=== PATIENT | female | born 1995 | race Caucasian/White ===

== ENCOUNTER 2021-12-21 22:19 | Inpatient (IN) | payer BC, OTHER, SELFPAY ==
[~2021-12-21] VITALS: Ht 157.5 cm; Wt 56.7 kg
[2021-12-21 22:29] VITALS: BP 144/85
--- NOTE | 2021-12-21 23:15 | NUR ---
Dr. Maldonado at triage to exam patient.
--- NOTE | 2021-12-21 23:19 | NUR ---
Ambulatory to bed 4.
[2021-12-21] MEDS ORDERED: NACL 0.9% 1,000 ML IV ONE (23:30)
[2021-12-21 23:44] LABS: BASOPHILS # (AUTO) 0.1 K/uL (0.00-0.22); BASOPHILS % (AUTO) 0.4 % (0.0-2.0); EOSINOPHILS % (AUTO) 0.2 % (0.0-4.0); HEMATOCRIT 26.9 % (36-48); HEMOGLOBIN 8.7 g/dL (12.0-16.0); LYMPHOCYTES # (AUTO) 1.9 K/uL (2.5-16.5); LYMPHOCYTES % (AUTO) 12.6 % (20.5-51.1); MEAN CORPUSCULAR HEMOGLOBIN 27 pg (27-31); MEAN CORPUSCULAR HGB CONC 32 g/dL (33-37); MEAN CORPUSCULAR VOLUME 83.8 fL (80-94); MONOCYTES # (AUTO) 0.7 K/uL (0.8-1.0); MONOCYTES % (AUTO) 4.9 % (1.7-9.3); NEUTROPHILS # (AUTO) 12.3 K/uL (1.8-7.7); NEUTROPHILS % (AUTO) 81.9 % (42.2-75.2); PLATELET COUNT (AUTO) 129 K/uL (140-450); RED BLOOD CELL COUNT(AUTO) 3.21 MIL/uL (4.20-5.40); RED CELL DISTRIBUTION WIDTH 21.7 % (11.6-13.7)
[2021-12-22 00:05] LABS: ANION GAP 18.2 (8-16); CARBON DIOXIDE 25.1 mmol/L (21-32); CREATININE 0.7 mg/dL (0.6-1.3); POTASSIUM 3.3 mmol/L (3.5-5.1)
[2021-12-22 00:10] LABS: ALBUMIN 3.8 g/dL (3.4-5.0); TOTAL BILIRUBIN 3.1 mg/dL (0.0-1.0)
[2021-12-22 00:31] LABS: PROTHROMBIN TIME 15.2 secs (10.8-13.4)
[2021-12-22] MEDS ORDERED: OSELTAMIVIR PHOSPHATE 75 MG CAP PO ONE (01:10)
--- NOTE | 2021-12-22 01:41 | NUR ---
ADVISED ER OF [facility]
[2021-12-22] MEDS ORDERED: NACL 0.9% 1,000 ML IV ONE ×2 (01:50)
[2021-12-22] MEDS ORDERED: cefTRIAXone 1,000 MG VIAL ONE (01:59)
[2021-12-22] MEDS ORDERED: POTASSIUM CHLORIDE 10 MEQ TABER PO ONE (04:20)
[2021-12-22] MEDS ORDERED: PIPERACILLIN/TAZOBACTAM 3.375 GM in DEXTROSE 5% 50 ML IV ONE (04:20)
[2021-12-22] MEDS ORDERED: PIPERACILLIN/TAZOBACTAM 3.375 GM VIAL IV ONE (04:25)
--- NOTE | 2021-12-22 05:23 | NUR ---
ULTRASOUND AT BEDSIDE.
[2021-12-22] MEDS ORDERED: ONDANSETRON 4 MG/2 ML VIAL IVP ONE (06:30)
--- NOTE | 2021-12-22 06:35 | NUR ---
US RESULTS DONE , NOTED BY DR. ALSTON AND FOR ADMISSION.
--- NOTE | 2021-12-22 06:41 | NUR ---
Patient will be admitted to care of DR. GUERRA. Admited to TELEMETRY. Belongings list completed.
--- NOTE | 2021-12-22 07:28 | NUR ---
Recieved report from BLAISE Rose. Transfer of care. Patient is laying in bed, resting with no signs of distress.
[2021-12-22] MEDS ORDERED: ZOLPIDEM 5 MG TAB PO PRN (07:50)
[2021-12-22] MEDS ORDERED: ACETAMINOPHEN 325 MG TAB PO PRN (07:50)
[2021-12-22] MEDS ORDERED: SODIUM PHOS / POTASSIUM PHOS 1 PKT PDR PO PRN (07:50)
[2021-12-22] MEDS ORDERED: LORazepam 2 MG/ML VIAL IM/IVP PRN (07:50)
[2021-12-22] MEDS ORDERED: POTASSIUM CHLORIDE 10 MEQ TABER PO PRN (07:50)
[2021-12-22] MEDS ORDERED: MAG SULF 2000 MG/WATER PREMIX 50 ML IV PRN (07:50)
[2021-12-22] MEDS ORDERED: DOCUSATE SODIUM 100 MG GELCAP PO PRN (07:50)
[2021-12-22] MEDS: NACL 0.9% 1,000 ML IV SCH ×2 (08:37→16:56)
[2021-12-22 08:58] LABS: PROTHROMBIN TIME 16.2 secs (10.8-13.4)
[2021-12-22] MEDS: chlordiazePOXIDE 25 MG CAP PO SCH ×3 (09:00→16:56)
--- NOTE | 2021-12-22 09:00 | NUR ---
PT AMBULATED TO RESTROOM, STEADY GAIT
[2021-12-22 09:05] LABS: CHOL/HDL RATIO 5.1 (1-4.5); FREE T4 (FREE THYROXINE) 1.04 ng/dL (0.76-1.46); PHOSPHORUS 3.5 mg/dL (2.5-4.9); THYROID STIMULATING HORMONE 3.83 uIU/mL (0.34-3.74)
--- NOTE | 2021-12-22 09:24 | NUR ---
Patient will be admitted to care of DR GUERRA. Admited to TELEMETRY. Will go to room 113. Belongings list completed. Report to ALFRED WELSH.
--- NOTE | 2021-12-22 09:45 | NUR ---
RECEIVED REPORT FROM UNIFORM ROOM ATTENDANT. PT IS AOx4, VSS, NAD NOTED. PT RESTING COMFORTABLY IN BED. PT PENDING HIDA SCAN SCHEDULED FOR 11AM. PT REMAINS NPO. PER UNIFORM ROOM ATTENDANT PT TO NOT RECEIVE MORPHINE TILL AFTER HIDA SCAN COMPLETE. PT AWARE. SAFETY MEASURES IN PLACE.
[2021-12-22 10:26] VITALS: BP 128/72
--- NOTE | 2021-12-22 10:26 | NUR ---
PATIENT HAS BEEN SCREENED AND CATEGORIZED HIGH NUTRITION RISK. PATIENT WILL BE SEEN WITHIN 1-2 DAYS OF ADMISSION. / DIANA LIM RD
[2021-12-22] MEDS: MORPHINE SULFATE 2 MG/ML SYR IVP PRN ×2 (12:54→20:13)
[2021-12-22] MEDS: ONDANSETRON 4 MG/2 ML VIAL IVP PRN ×2 (12:54→20:13)
[2021-12-22] MEDS: PIPERACILLIN/TAZOBACTAM 3.375 GM in DEXTROSE 5% 50 ML IV SCH ×2 (13:36→20:17)
[2021-12-22] MEDS: HYDROcodone/APAP 5/325 MG 1 TAB TAB PO PRN (14:02)
[2021-12-22 16:00] VITALS: BP 125/80
--- NOTE | 2021-12-22 19:20 | NUR ---
RECEIVED REPORT FROM MORNING NURSE. PATIENT RESTING ON BED. IV FLUIDS ONGOING AT DESIRED RATE, IV SITE INTACT. BREATHING EVEN AND UNLABORED , ON ROOM AIR. NO COMPLAINTS AT THIS TIME. BED LOCKED AT LOWEST WITH X2 SIDE RAILS UP. CALL LIGHT WITHIN REACH. WILL CONTINUE TO MONITOR PATIENT.
[2021-12-22 20:00] VITALS: BP 134/87
[2021-12-22] MEDS ORDERED: AZITHROMYCIN 500 MG in DEXTROSE 5% 250 ML IV SCH (23:40)
[2021-12-23] VITALS: BP 113/76
[2021-12-23] MEDS ORDERED: AZITHROMYCIN 500 MG INJ VIAL IV ONE (00:27)
[2021-12-23] MEDS: HYDROcodone/APAP 5/325 MG 1 TAB TAB PO PRN ×2 (03:03→20:36)
--- NOTE | 2021-12-23 03:06 | NUR ---
IV SITE ON LEFT AC BLEEDING, REMOVED, TIP INTACT. INSERTED A NEW ONE ON LEFT FOREARM , G20. PATIENT TOLERATED WELL THE PROCEDURE. IV FLUID RESUMED AT DESIRED RATE.
[2021-12-23 04:00] VITALS: BP 117/80
[2021-12-23] MEDS: PIPERACILLIN/TAZOBACTAM 3.375 GM in DEXTROSE 5% 50 ML IV SCH ×2 (04:47→13:13)
[2021-12-23] MEDS: NACL 0.9% 1,000 ML IV SCH ×2 (04:52→13:17)
[2021-12-23 06:29] LABS: BASOPHILS % (AUTO) 0.2 % (0.0-2.0); EOSINOPHILS # (AUTO) 0.1 K/uL (0-0.4); EOSINOPHILS % (AUTO) 0.8 % (0.0-4.0); HEMATOCRIT 22.2 % (36-48); HEMOGLOBIN 7.5 g/dL (12.0-16.0); LYMPHOCYTES # (AUTO) 0.6 K/uL (2.5-16.5); LYMPHOCYTES % (AUTO) 6.8 % (20.5-51.1); MEAN CORPUSCULAR HEMOGLOBIN 29 pg (27-31); MEAN CORPUSCULAR HGB CONC 34 g/dL (33-37); MONOCYTES # (AUTO) 0.4 K/uL (0.8-1.0); MONOCYTES % (AUTO) 4.2 % (1.7-9.3); NEUTROPHILS # (AUTO) 8.1 K/uL (1.8-7.7); PLATELET COUNT (AUTO) 58 K/uL (140-450); RED BLOOD CELL COUNT(AUTO) 2.61 MIL/uL (4.20-5.40); WHITE BLOOD COUNT (AUTO) 9.2 K/uL (4.8-10.8)
--- NOTE | 2021-12-23 07:25 | NUR ---
REPORT GIVEN TO MORNING NURSE. PATIENT RESTING AND STABLE.
--- NOTE | 2021-12-23 07:26 | NUR ---
RECEIVED REPORT FROM CRYOGENICS REPAIRER NURSE FOR CONTINUITY OF CARE. PT IN BED RESTING AT THIS TIME. RESPIRATIONS ARE EVEN AND UNLABORED ON ROOM AIR. NO SIGNS OF DISTRESS NOTED. PT IS ALERT AND ORIENTED X4. ABLE TO VERBALIZE NEEDS TO STAFF. NO COMPLAINTS OF PAIN OR DISCOMFORT NOTED. CALL LIGHT WITHIN REACH. ALL SAFETY MEASURES IN PLACE. WILL CONTINUE TO MONITOR.
[2021-12-23 07:38] LABS: ANION GAP 15.2 (8-16); CARBON DIOXIDE 24.8 mmol/L (21-32); CREATININE 0.6 mg/dL (0.6-1.3); MAGNESIUM 1.3 mg/dL (1.8-2.4); TOTAL BILIRUBIN 5.4 mg/dL (0.0-1.0)
[2021-12-23 08:00] VITALS: BP 117/83
[2021-12-23] MEDS: chlordiazePOXIDE 25 MG CAP PO SCH ×3 (08:11→16:46)
[2021-12-23] MEDS: OSELTAMIVIR PHOSPHATE 75 MG CAP PO SCH (08:12)
--- NOTE | 2021-12-23 08:14 | NUR ---
ADMINISTERED ALL SCHEDULED MEDICATIONS. EDUCATED PT ON MEDS ADMINISTERED. ANSWERED ALL QUESTIONS. PT TOLERATED WELL. WILL CONTINUE TO MONITOR.
[2021-12-23 08:27] LABS: ALBUMIN 3.2 g/dL (3.4-5.0)
[2021-12-23 12:00] VITALS: BP 121/85
--- NOTE | 2021-12-23 12:07 | NUR ---
RECEIVED REPORT FROM RN, PT IN STABLE CONDITION, VSS, NAD NOTED. WILL CONTINUE TO MONITOR.
--- NOTE | 2021-12-23 13:36 | NUR ---
DC PLANNING: THE PATIENT ADMITTED THROUGH THE ER WITH C/O FEVER, N/V, [facility] H/O FATTY LIVER DISEASE, WBC'S ON ADMISSION 15, POSITIVE FOR INFLUENZA A. ID AND GI CONSULTS ORDERED, STARTED ON TAMIFLU, ZITHROMAX AND ZOSYN, IN ISOLATION. CM SPOKE WITH THE PATIENT VIA HER CELL PHONE ([phone]) CONFIRMED HER ADDRESS. SHE LIVES IN A MOBILE HOME WITH HER MOTHER AND IS INDEPENDENT IN ALL ACTIVITIES. NO DME OR H/O HOME HEALTH, JUST BECAME ACTIVE WITH [employer] AND DOES NOT YET HAVE A PCP. CM ENCOURAGED HER TO CALL INSURANCE TO GET HER ASSIGNED PCP'S INFORMATION SHE WILL NEED TO FOLLOW UP FOR MANAGEMENT OF HER FATTY LIVER DISEASE. THE PATIENT LIVES IN [place] BUT DECIDED TO STAY WITH HER FIANCE WHO LIVES LOCALLY THEY HAD JUST RETURNED FROM [facility] FOR HER ENGAGEMENT [employer] AND SHE DIDN'T WANT TO DRIVE DOWN TO [place]. BLOOD CULTURES PENDING, DC PLAN IS FOR PATIENT TO RETURN HOME WHEN CLINICALLY STABLE. JOEY WILL FOLLOW. Addendum: 12/23/21 at 1349 by Dorie Euceda CM Amended: Links added.
--- NOTE | 2021-12-23 14:05 | NUR ---
12/23/21 RD INITIAL ASSESSMENT COMPLETED PLEASE REFER TO NUTRITION ASSESSMENT UNDER CARE ACTIVITY FOR ESTIMATED NUTRITIONAL NEEDS. 1. CONTINUE REGULAR DIET TOLERATED 2. RECOMMEND ORAL SUPPLEMENTS IF PO INTAKE IS < 75% 3. RD TO FOLLOW-UP 3-5 DAYS, MODERATE RISK DIANA LIM, RD
[2021-12-23 16:00] VITALS: BP 112/74
[2021-12-23] MEDS ORDERED: POTASSIUM CHLORIDE 20% 40 MEQ/15 ML UDC GT SCH (16:40)
[2021-12-23] MEDS: POTASSIUM CHL 20MEQ/D5-NS 1,000 ML IV SCH (16:45)
[2021-12-23] MEDS: SENNA 8.6 MG TAB PO SCH (16:46)
[2021-12-23] MEDS: LACTULOSE 20 GM/30 ML UDC PO SCH ×2 (16:46→20:41)
--- NOTE | 2021-12-23 17:07 | NUR ---
DR. MELVIN SEEN PT AT BEDSIDE. INFORMED PT SHE SHOULD HAVE EGD/COLONOSCOPY PERFORMED. INFORMED PT OF RISKS AND BENEFITS PER PT. PT AGREEABLE AND CONSENT SIGNED. PT TO BE NPO AFTER DINNER FOR PROCEDURES TMRW.
[2021-12-23] MEDS ORDERED: MAGNESIUM CITRATE 300 ML BTL PO SCH (19:00)
--- NOTE | 2021-12-23 19:15 | NUR ---
ENDORSED CARE TO DIRECTOR MEDICAL SURGICAL RN, PT IN STABLE CONDITION.
--- NOTE | 2021-12-23 19:18 | NUR ---
RECEIVED REPORT FROM MORNING NURSE. PATIENT RESTING ON BED. BREATHING EVEN AND UNLABORED.WILL CONTINUE TO MONITOR PATIENT.
[2021-12-23 20:00] VITALS: BP 104/60
--- NOTE | 2021-12-23 20:40 | NUR ---
PATIENT MEDICATED FOR ABDOMINAL PAIN. WILL RE-ASSESS FOR MED RESPONSE. CALL LIGHT WITHIN REACH.
[2021-12-24] VITALS: BP 117/72
--- NOTE | 2021-12-24 00:20 | NUR ---
PATIENT RESTING ON BED. VSS. NO COMPLAINTS AT THIS TIME. WILL CONTINUE TO MONITOR AND ASSESS.
[2021-12-24 04:00] VITALS: BP 117/69
[2021-12-24] MEDS: POTASSIUM CHL 20MEQ/D5-NS 1,000 ML IV SCH ×2 (05:02→16:23)
--- NOTE | 2021-12-24 07:10 | NUR ---
REPORT GIVEN TO MORNING SHIFT RN. PATIENT RESTING ON BED, STABLE.
--- NOTE | 2021-12-24 07:15 | NUR ---
REPORT RCVD FROM OUT GOING NOC RN, ALL CARES ASSUMED. PATIENT STABLE IN NO ACUTE DISTRESS AND OR DISCOMFORT.
[2021-12-24 07:20] LABS: BASOPHILS # (AUTO) 0.1 K/uL (0.00-0.22); BASOPHILS % (AUTO) 0.5 % (0.0-2.0); EOSINOPHILS # (AUTO) 0.2 K/uL (0-0.4); HEMATOCRIT 22.1 % (36-48); HEMOGLOBIN 7.3 g/dL (12.0-16.0); LYMPHOCYTES # (AUTO) 1.1 K/uL (2.5-16.5); LYMPHOCYTES % (AUTO) 10.2 % (20.5-51.1); MEAN CORPUSCULAR HEMOGLOBIN 29 pg (27-31); MEAN CORPUSCULAR HGB CONC 33 g/dL (33-37); MEAN CORPUSCULAR VOLUME 87.1 fL (80-94); MONOCYTES # (AUTO) 0.5 K/uL (0.8-1.0); MONOCYTES % (AUTO) 4.8 % (1.7-9.3); NEUTROPHILS # (AUTO) 8.5 K/uL (1.8-7.7); NEUTROPHILS % (AUTO) 82.5 % (42.2-75.2); PLATELET COUNT (AUTO) 58 K/uL (140-450); RED BLOOD CELL COUNT(AUTO) 2.54 MIL/uL (4.20-5.40); RED CELL DISTRIBUTION WIDTH 21.3 % (11.6-13.7); WHITE BLOOD COUNT (AUTO) 10.3 K/uL (4.8-10.8)
[2021-12-24 07:25] LABS: ALBUMIN 3.1 g/dL (3.4-5.0); ANION GAP 12.7 (8-16); CARBON DIOXIDE 21.9 mmol/L (21-32); CREATININE 0.6 mg/dL (0.6-1.3); MAGNESIUM 1.9 mg/dL (1.8-2.4); POTASSIUM 3.6 mmol/L (3.5-5.1); TOTAL BILIRUBIN 2.9 mg/dL (0.0-1.0)
[2021-12-24 08:00] VITALS: BP 114/76
[2021-12-24] MEDS: OSELTAMIVIR PHOSPHATE 75 MG CAP PO SCH (09:15)
[2021-12-24] MEDS: SENNA 8.6 MG TAB PO SCH ×2 (09:15→13:00)
[2021-12-24] MEDS: chlordiazePOXIDE 25 MG CAP PO SCH ×2 (09:15→13:00)
[2021-12-24] MEDS: LACTULOSE 20 GM/30 ML UDC PO SCH ×2 (09:15→13:00)
--- NOTE | 2021-12-24 10:11 | NUR ---
SPOKE WITH DR. MELVIN OVER PHONE, MD WILL SCHEDULE PATIENT TODAY FOR EGD / COLONOSCOPY.
[2021-12-24] MEDS ORDERED: MIDAZOLAM 5 MG/5 ML VIAL ONE (11:42)
[2021-12-24] MEDS ORDERED: diphenhydrAMINE 50 MG/ML VIAL ONE (11:42)
[2021-12-24] MEDS ORDERED: fentaNYL citrate 0.05 MG/ML VIAL ONE (11:42)
--- NOTE | 2021-12-24 11:54 | NUR ---
GI NURSE TAKING PATIENT TO GI LAB FOR PROCEDURE.
[2021-12-24] MEDS ORDERED: DIAZEPAM PFS 10 MG/2 ML SYR ONE (12:13)
--- NOTE | 2021-12-24 13:50 | NUR ---
PATIENT RETURNED FROM EGD / COLONOSCOPY, PATIENT STABLE IN NO ACUTE DISTRESS AND OR DISCOMFORT.
[2021-12-24] MEDS ORDERED: MULTIVITAMIN/MINERALS 1 TAB PO ONE (13:52)
[2021-12-24] MEDS ORDERED: THIAMINE 100 MG TAB PO ONE (13:52)
[2021-12-24] MEDS ORDERED: MIDAZOLAM 2 MG/2 ML VIAL IVP ONE (14:05)
[2021-12-24] MEDS ORDERED: fentaNYL citrate 0.05 MG/ML VIAL IVP ONE (14:05)
[2021-12-24 16:00] VITALS: BP 119/79
[2021-12-24] MEDS: FERROUS SULFATE 325 MG TABEC PO SCH (16:18)
[2021-12-24] MEDS ORDERED: chlordiazePOXIDE 25 MG CAP PO SCH (17:00)
--- NOTE | 2021-12-24 18:46 | NUR ---
CLOSING NOTE: REPORT GIVEN TO INCOMING NOC NURSE, ALL CARES ENDORSED.
[2021-12-24 20:00] VITALS: BP 107/60
[2021-12-25] VITALS: BP 100/55
[2021-12-25 04:44] VITALS: BP 110/67
[2021-12-25] MEDS: POTASSIUM CHL 20MEQ/D5-NS 1,000 ML IV SCH (05:02)
--- NOTE | 2021-12-25 07:30 | NUR ---
RECEIVED PT REPORT FROM SCIENCE ANALYST NURSE FOR CONTINUITY OF CARE. PT IS AOX4, ABLE TO MAKE NEEDS KNOWN. RESPIRATIONS EVEN AND UNLABORED. ON ROOM AIR AND NO DISTRESS NOTED. SKIN IS WARM, DRY, INTACT. IV SITE ON LFA 20 G INFUSING FLUIDS WELL. INTACT AND PATENT. PT DENIES PAIN. AMBULATORY. PLAN OF CARE DISCUSSED. SAFETY PRECAUTIONS IN PLACE. CALL LIGHT WITHIN REACH. WILL CONTINUE TO MONITOR.
[2021-12-25 07:39] LABS: ALBUMIN 2.8 g/dL (3.4-5.0); ANION GAP 12.7 (8-16); CARBON DIOXIDE 22.8 mmol/L (21-32); CREATININE 0.5 mg/dL (0.6-1.3); MAGNESIUM 1.5 mg/dL (1.8-2.4); POTASSIUM 3.5 mmol/L (3.5-5.1); TOTAL BILIRUBIN 2.1 mg/dL (0.0-1.0)
[2021-12-25 08:00] VITALS: BP 115/75
[2021-12-25 08:00] LABS: BASOPHILS # (AUTO) 0.1 K/uL (0.00-0.22); BASOPHILS % (AUTO) 0.7 % (0.0-2.0); EOSINOPHILS # (AUTO) 0.3 K/uL (0-0.4); EOSINOPHILS % (AUTO) 3.2 % (0.0-4.0); HEMATOCRIT 21.8 % (36-48); HEMOGLOBIN 7.1 g/dL (12.0-16.0); LYMPHOCYTES # (AUTO) 1.2 K/uL (2.5-16.5); MEAN CORPUSCULAR HEMOGLOBIN 29 pg (27-31); MEAN CORPUSCULAR HGB CONC 33 g/dL (33-37); MONOCYTES # (AUTO) 0.5 K/uL (0.8-1.0); MONOCYTES % (AUTO) 6.3 % (1.7-9.3); NEUTROPHILS % (AUTO) 74.8 % (42.2-75.2); PLATELET COUNT (AUTO) 57 K/uL (140-450); RED BLOOD CELL COUNT(AUTO) 2.45 MIL/uL (4.20-5.40); RED CELL DISTRIBUTION WIDTH 22.3 % (11.6-13.7)
[2021-12-25 08:07] LABS: FOLIC ACID 4.6 ng/mL (>3.0)
[2021-12-25] MEDS: FERROUS SULFATE 325 MG TABEC PO SCH (08:22)
[2021-12-25] MEDS: OSELTAMIVIR PHOSPHATE 75 MG CAP PO SCH (08:22)
[2021-12-25] MEDS ORDERED: MULTIVITAMIN/MINERALS 1 TAB PO SCH (09:00)
[2021-12-25] MEDS ORDERED: THIAMINE 100 MG TAB PO SCH (09:00)
[2021-12-25] MEDS ORDERED: TAM75 PO (09:15)
[2021-12-25] MEDS ORDERED: OMEP40EC23 PO (09:17)
[2021-12-25] MEDS ORDERED: PROP20TA29 PO (09:18)
[2021-12-25] MEDS ORDERED: MULT-2086 PO (09:24)
[2021-12-25] MEDS ORDERED: CHLO5CAP86 PO (09:24)
[2021-12-25] MEDS ORDERED: THIA-34 PO (09:24)
[2021-12-25] MEDS ORDERED: FER325 PO (09:24)
--- NOTE | 2021-12-25 09:45 | NUR ---
ALL SCHEDULED MEDS GIVEN. PT IS STABLE. NO DISTRESS NOTED. WILL CONTINUE TO MONITOR.
[2021-12-25 10:55] VITALS: BP 115/75
--- NOTE | 2021-12-25 11:31 | NUR ---
ENDORSED DISCHARGE INSTRUCTIONS TO PT. PT VERBALIZED UNDERSTANDING AND SIGNED DISCHARGE FORMS
[2021-12-25 12:00] VITALS: BP 112/71
[2021-12-25] MEDS ORDERED: MAGNESIUM OXIDE 400 MG TAB PO ONE (13:05)
--- NOTE | 2021-12-25 13:16 | NUR ---
ALL SCHEDULED MEDS GIVEN. PT IS STABLE. NO DISTRESS NOTED. WILL CONTINUE TO MONITOR.
--- NOTE | 2021-12-25 13:45 | NUR ---
PATIENT DISCHARGED OFF THE UNIT. FAMILY PICKED PATIENT UP AT THE FRONT LOBBY. PT WAS STABLE PRIOR TO DISCHARGE.
== END 2021-12-25 14:03 | disposition home or self-care (01) | DRG 872 ==
LOC: MED 22:19 → MTU 12-22 06:41
PROVIDERS: ADMIT Family Medicine; ATTEND Family Medicine
PROC: 0DB68ZX Excision of Stomach, Via Natural or Artificial Opening Endoscopic, Diagnostic (ICD-10-PCS; principal; 2021-12-24 12:00)
PROC: 0DJD8ZZ Inspection of Lower Intestinal Tract, Via Natural or Artificial Opening Endoscopic (ICD-10-PCS; 2021-12-24 12:00)
DX: A41.9 Sepsis, unspecified organism (principal); K76.6 Portal hypertension; K22.10 Ulcer of esophagus without bleeding; K31.89 Other diseases of stomach and duodenum; D69.59 Other secondary thrombocytopenia; E03.9 Hypothyroidism, unspecified; F10.129 Alcohol abuse with intoxication, unspecified; Y90.8 Blood alcohol level of 240 mg/100 ml or more; Z20.822 Contact with and (suspected) exposure to COVID-19; J10.1 Influenza due to other identified influenza virus with other respiratory manifestations; E87.6 Hypokalemia; K52.9 Noninfective gastroenteritis and colitis, unspecified; K82.8 Other specified diseases of gallbladder; R16.2 Hepatomegaly with splenomegaly, not elsewhere classified; D64.9 Anemia, unspecified
CPT/HCPCS: 36415; 71045; 76705; 78445; 80053; 82150; 82607; 82728; 82746; 83036; 83540; 83605; 83690; 83735; 83880; 84100; 84439; 84443; 84484; 85025; 85045; 85610; 85730; 86677; 87040; 87081; 93005; 96361; 96365; 96375; 99291; A9510; G0482; J0456; J0696; J1200; J2250; J2270; J2405; J2543; J3010; J3360; J7030; J7060; Q0092; Q9967